=== PATIENT | female | born 2005 | race Caucasian/White ===

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

== ENCOUNTER 2024-02-06 15:17 | Day surgery (SDC) | payer OTHER, SELFPAY ==
[2024-02-06 15:21] VITALS: BP 106/69; PULSE 94; RESP 16; TEMP 36.6; O2SAT 97; BMI 27.5
--- NOTE | 2024-02-06 16:46 | ED_ITS ---
HPI - Abdominal Pain General Time Seen by Provider: 16:46 Date Seen: 02/06/24 Chief Complaint: Abdominal Pain Stated Complaint: Lower abdominal pain Time Seen by Provider: 02/06/24 16:46 Source: patient and RN notes reviewed Mode of arrival: ambulatory Limitations: no limitations History of Present Illness HPI narrative: This 18-year-old female is coming into the ER with severe sharp episodic but significant baseline underlying pain in the pelvic area, radiates into the right buttock area. This started about 20 minutes after intercourse last night. Her menstrual cycles are regular, has not had a menstrual cycle yet. She is not on any control but they do use contraception. She does not believe that she would likely be . She did urinate earlier this morning, no issues with urination until attempting to go into the bathroom right now. She attempted to provide urine for specimen, got she severe sharp pain and could not go. She has had progressive nausea and vomiting, vomited once last night, vomited again just recently. The pain is so bad that it almost makes her feel like she is going to faint. She has never had any sexually transmitted infection, no concern for any vaginal discharge. She had a normal bowel movement yesterday, no diarrhea. She has not had any prior abdominal surgeries, no history of kidney stones. She believes her mom might have kidney stones. No fevers. Related Data Home Medications ?Medication ?Instructions ?Recorded ?Confirmed dextroamphetamine-amphetamine ER 30 mg PO 04/23/22 06/17/22 20 mg 24hr capsule,extend release (Adderall XR) escitalopram oxalate 5 mg tablet 5 mg PO 06/17/22 06/17/22 Previous Rx's ?Medication ?Instructions ?Recorded ondansetron 4 mg disintegrating 4 mg PO Q6H PRN Nausea And 04/23/22 tablet Vomiting #15 tabs sucralfate 1 gram tablet (Carafate) 1 g PO QID 7 days #28 tabs 04/23/22 famotidine 20 mg tablet 20 mg PO DAILY #30 tabs 06/23/22 ibuprofen 600 mg tablet 600 mg PO Q6H PRN Pain #30 tabs 02/07/24 oxycodone 5 mg tablet 5 mg PO Q6H PRN 4 OR GREATER ON 02/07/24 PAIN SCALE #15 tabs Allergies Allergy/AdvReac Type Severity Reaction Status Date / Time No Known Drug Allergies Allergy Verified 02/06/24 15:27 Review of Systems Status of ROS Reports: 6 or more systems reviewed and unremarkable except as noted in History and below [facility] Social History Smoking Status: Current some day smoker What tobacco products do you use: cigarettes Years smoked: 2 Do you use any of these nicotine containing products: E-Cigarettes and Vaping Products Second hand tobacco smoke exposure: No How often do you have a drink containing alcohol: 2-3 times a week How many standard drinks containing alcohol do you have on a typical day: 1 or 2 How often do you have six or more drinks on one occasion: Monthly AUDIT-C Alcohol total score: 5 Non-prescribed substance use: marijuana (any form) Exam Const: Vital Signs, click to edit/add: Vital Signs - 24 hr 02/06/24 15:21 02/06/24 16:53 02/06/24 16:57 Temperature 97.8 F Pulse Rate 66 Pulse Rate [Pulse Oximeter] 94 Respiratory Rate 16 18 Blood Pressure 103/57 L Blood Pressure [Ri ght Upper Arm] 106/69 Pulse Oximetry 97 98 99 Oxygen Delivery Me thod Room Air 02/06/24 19:59 02/06/24 21:45 02/07/24 00:25 Temperature 98.3 F 97.4 F L Pulse Rate 72 58 L Pulse Rate [Pulse Oximeter] 83 Respiratory Rate 18 18 14 Blood Pressure 113/64 107/67 Blood Pressure [Ri ght Upper Arm] 110/80 Pulse Oximetry 100 98 100 Oxygen Delivery Me thod Room Air Room Air 02/07/24 00:30 02/07/24 00:35 02/07/24 00:40 Temperature Pulse Rate 56 L 54 L 55 L Pulse Rate [Pulse Oximeter] Respiratory Rate 14 14 12 Blood Pressure 88/61 L 99/66 104/59 L Blood Pressure [Ri ght Upper Arm] Pulse Oximetry 100 100 99 Oxygen Delivery Me thod Room Air Room Air Room Air 02/07/24 00:45 02/07/24 00:50 02/07/24 00:55 Temperature Pulse Rate 56 L 52 L 56 L Pulse Rate [Pulse Oximeter] Respiratory Rate 14 14 12 Blood Pressure 110/64 108/69 97/73 Blood Pressure [Ri ght Upper Arm] Pulse Oximetry 100 99 100 Oxygen Delivery Me thod Room Air Room Air Room Air This 18-year-old female is alert, interactive, seems to be in significant discomfort. Pupils are equal round reactive, sclera clear, symmetrical facial function, speech normal. Neck supple, no adenopathy. Lungs are clear, good air entry, wheezing or crackles. CV regular rate and rhythm, no murmur, normal S1- S2, no S3-S4. Abdomen is soft, nondistended but she has definite right upper quadrant pain, significant lower abdominal pain with some guarding but no rebound. She is tender enough that is difficult to tell if there is any underlying masses or organomegaly. Pelvic exam deferred at this point. Skin visualized without rash. Patient was ambulatory into the ED of her own accord but does note it ambulating is painful. Documenting provider has reviewed patient's vital signs: yes Course Course ED Course: This certainly could be urinary issues such as a kidney stone, need to try to obtain urinalysis. Will get serum test, need to consider ectopic if test is positive. Patient feels quite sure that there really is not a chance for but will do the test. Will start with IV Toradol and Zofran for symptom control. Will initiate pelvic ultrasound looking at right ovary. This could be ovarian cystic disease, need to consider ovarian torsion with her presentation. Patient will need pain management prior to going to have ultrasound. May need to consider CT imaging. Do not feel that we can wait to collect urinalysis, do think we really should visualize her ovaries make sure there is no torsion. Reevaluation(s) Time of Reevaluation #1: 18:40 Reevaluation #1: Patient is checked on, she feels her pain is better, has received both Toradol and 25 mcg of fentanyl. She is better. On palpation of her abdomen, still has some right lower quadrant tenderness but is certainly much improved over where she was on admission. We are awaiting radiology over read but reviewed with her that the preliminary from director sales training is that there is a ruptured hemorrhagic cyst. Time of Reevaluation #2: 19:02 Reevaluation #2: Provided patient copy of her ultrasound report, reviewed with her that there is not a chance for ruptured ectopic as her hCG is negative. She notes that the lower pelvic cramping that she was having in the lower severe abdominal pain is improved. She is feeling a little upper epigastric discomfort, not nausea. She does not feel like she needs pain medicines. She is still hemodynamically stable. We will proceed with CT abdomen pelvis with IV contrast as requested by Radiology to further look at the abnormal ultrasound report. Time of Reevaluation #3: 20:05 Reevaluation #3: Have updated the patient regarding the findings of the CT. We are getting an updated hemoglobin, will do a type and screen. She is aware that she will likely be going to surgery, ultimate say will be from the surgeon coming in to evaluate her. Have reviewed that Dr. Shearer will be coming in to see her. Consultations Consultation #1: Radiology did call and give me verbal report on patient's CT, there was concern for actively hemorrhaging ruptured hemorrhagic right ovarian cyst. We did update nursing staff immediately after that, need to get updated hemoglobin and type and screen. Did page Dr. Shearer at 7:57 p.m. and she called back immediately. She will be in to evaluate this patient, we will let warehouse distribution associate no and get surgical crew here on standby for likely trip to OR. Time: 19:54 Consultation #2: Dr. Shearer is here, hemoglobin has come back at 12.2, was at 14 on arrival. She will go to the OR for diagnostic laparoscopy. Will initiate IV fluids, her pain is escalated at this time, will give her more fentanyl. Did discuss TXA but this is declined at this time by Dr. Shearer. Time: 20:50 Vital Signs Vital signs: Initial Vital Signs Temperature 97.8 F 02/06/24 15:21 Temperature Source Temporal Artery Scan 02/06/24 15:21 Pulse Rate 94 02/06/24 15:21 Respiratory Rate 16 02/06/24 15:21 Blood Pressure 106/69 02/06/24 15:21 Blood Pressure Mean 81 02/06/24 15:21 Blood Pressure Position Sitting 02/06/24 15:21 Pulse Oximetry 97 02/06/24 15:21 Oxygen Delivery Method Room Air 02/06/24 15:21 Vital Signs Temperature 97.8 F 02/06/24 15:21 Pulse Rate 94 02/06/24 15:21 Respiratory Rate 16 02/06/24 15:21 Blood Pressure 106/69 02/06/24 15:21 Pulse Oximetry 97 02/06/24 15:21 Oxygen Delivery Method Room Air 02/06/24 15:21 Temperature 97.4 F L 02/07/24 00:25 Pulse Rate 56 L 02/07/24 00:55 Respiratory Rate 12 02/07/24 00:55 Blood Pressure 97/73 02/07/24 00:55 Pulse Oximetry 100 02/07/24 00:55 Oxygen Delivery Method Room Air 02/07/24 00:55 Medications Administered Medications: Generic Name Dose Route Start Last Admin Trade Name Freq PRN Reason Stop Dose Admin Oxycodone HCl 5 mg 02/07/24 00:27 02/07/24 01:27 Oxycodone 5 Mg Tablet PO 5 mg Q4H PRN Administration 4 OR GREATER ON PAIN SCALE Discontinued Medications Generic Name Dose Route Start Last Admin Trade Name Freq PRN Reason Stop Dose Admin Bupivacaine HCl 30 ml 02/06/24 23:34 02/06/24 23:34 Bupivacaine 0.25% 30 Ml INJECTION 02/06/24 23:35 10 ml ONCE ONE Administration Cefazolin Sodium 2 gm 02/06/24 21:32 02/06/24 22:22 Cefazolin 2 Gm Inj IVP 02/06/24 21:33 2 gm ONCE ONE Administration Fentanyl 25 mcg 02/06/24 17:53 02/06/24 18:01 Fentanyl 100 Mcg/2 Ml Inj IVP 02/06/24 17:54 25 mcg ONCE ONE Administration Fentanyl 50 mcg 02/06/24 20:52 02/06/24 21:00 Fentanyl 100 Mcg/2 Ml Inj IVP 02/06/24 20:53 50 mcg ONCE ONE Administration Hydromorphone HCl 0.5 mg 02/07/24 00:35 02/07/24 00:35 Hydromorphone 0.5 Mg/0.5 Ml Inj IVP 0.5 mg Q10M PRN Administration Sodium Chloride 1,000 mls @ 1,000 mls/hr 02/06/24 20:50 02/06/24 20:59 0.9 % Sodium Chloride 1000 Ml IV 02/06/24 21:49 1,000 mls/hr .Q1H TYSON Administration Ketorolac Tromethamine 15 mg 02/06/24 16:52 02/06/24 17:02 Ketorolac 15 Mg/Ml Inj IVP 02/06/24 16:53 15 mg ONCE ONE Administration Ondansetron HCl 4 mg 02/06/24 16:52 02/06/24 17:02 Ondansetron 2 Mg/Ml Inj IVP 02/06/24 16:53 4 mg ONCE ONE Administration MDM - Abdominal Pain Lab Data Attestation: I reviewed the patient's lab results. Labs: Lab Results 02/06/24 02/06/24 Range/Units 16:55 20:05 WBC 11.12 H (4.50-11.00) K/uL RBC 4.39 (4.00-5.20) m/uL Hgb 14.0 12.2 (12.0-16.0) gm/dL Hct 42.4 (33.0-51.0) % MCV 97 (80-100) fL MCH 32 (26-34) pg MCHC 33 (32-36) gm/dL RDW Coeff of [place]by 12.6 (11.5-15.5) % Plt Count 340 (140-440) K/uL Neut % (Auto) 74.1 H (42.0-72.0) % Lymph % (Auto) 18.3 L (20-44) % [place] % (Auto) 6.6 (0.0-11.0) % Eos % (Auto) 0.7 (0.0-7.0) % Baso % (Auto) 0.2 (0.0-3.0) % Neut # (Auto) 8.20 H (1.7-7.0) K/uL Lymph # (Auto) 2.00 (0.90-2.90) K/uL [place] # (Auto) 0.70 (0.00-0.90) K/UL Eos # (Auto) 0.10 (0.00-0.50) K/uL Baso # (Auto) 0.00 (0.00-0.30) K/uL Abs Immat Gran (auto) 0.00 (0.00-0.30) K/uL Imm/Tot Granulo (auto) 0.1 % Sodium 136 (135-149) mmol/L Potassium 3.7 (3.6-5.1) mmol/L Chloride 103 (96-114) mmol/L Carbon Dioxide 24 (20-32) mmol/L Anion Gap 9 (7-15) mEq/L BUN 11 (5-24) mg/dL Creatinine 0.7 (0.5-1.5) mg/dL Estimated Creat Clear 110.70 Estimated GFR 127 ml/min Glucose 131 H (60-115) mg/dL Lactate 1.1 (0.5-1.9) mmol/L Calcium 8.8 (8.4-10.6) mg/dL Total Bilirubin 0.3 (0.1-1.5) mg/dL AST 22 (12-35) U/L ALT 19 (4-35) U/L Alkaline Phosphatase 72 (40-150) U/L C-Reactive Protein < 0.5 L (0.5-1.0) mg/dL Total Protein 7.0 (6.0-8.3) g/dL Albumin 4.3 (3.3-5.0) g/dL HCG, Qual Negative (Negative) Blood Type O Positive Antibody Screen NEGATIVE Imaging Data US pelvis: Attestation: I have reviewed the pertinent imaging results. My impression: Did visualize images of the ultrasound, can see this complex process around the right ovarian area. Radiologist's impression: Patient: CHRIS HILTON Facility:?[facility] Patient ID:?[id number] Site Patient ID:?[id number]. Site :?[id number] Study:?US-Pelvis TA/TV w/doppler-02/06/2024 6:01:38 PM Ordering Physician:Ladi Olguin Final Report: INDICATION: Severe pelvic pain. COMPARISON: None. TECHNIQUE: 2D hinton scale and color Doppler images were acquired of the pelvis using a transabdominal and transvaginal approach. FINDINGS: Sonographic images demonstrate a normal size and smooth outer contour of the uterus. The uterus is anteverted in position. The uterus measures 6.1 cm in length by 3.3 cm in AP diameter by 3.7 cm in transverse dimension. The myometrium has uniform echotexture. The endometrial lining measures 8 mm in composite thickness. The right ovary was not discretely visualized. There is a complex solid and cystic structure in the right adnexa measuring 6.1 x 4.9 x 5.6 cm with peripheral blood flow. Adjacent/surrounding large slightly echogenic solid- appearing structure in the right adnexa measuring approximately 5 x 10 cm. The left ovary measures 5.1 x 2.1 x 5.2 cm. Normal arterial and venous blood flow on color Doppler analysis. There is a 3.2 x 2.1 x 2.9 cm hypoechoic structure in the left ovary with no significant internal vascularity. Large amount of complex fluid throughout the pelvis which may represent blood products. IMPRESSION: 1. Complex solid and cystic structure in the right adnexa with large amount of adjacent/surrounding slightly echogenic material. The right ovary was not discretely visualized. Differential considerations include ruptured hemorrhagic cyst, ruptured ectopic , tubo-ovarian abscess, ovarian mass, or other non gynecologic issue. Correlate with serum beta HCG levels. Recommend further evaluation with contrast-enhanced CT of the abdomen and pelvis. 2. Hypoechoic avascular structure in the left ovary could represent a hemorrhagic cyst but is indeterminate. Follow-up ultrasound is recommended to ensure resolution. 3. Large amount of complex fluid throughout the pelvis may represent blood products. Dictated by Beulah William MD @ 02/06/2024 6:58:52 PM (Electronic Signature) CT scan - abdomen: Attestation: I have reviewed the pertinent imaging results. Radiologist's impression: Patient: SLOAN PEREZ Facility:?[facility] Patient ID:?[id number] Site Patient ID:?[id number]. Site :?2003 Study:?CT-Abdomen/Pelvis W/ 79CC [id number]/25/2024 7:35:58 PM Ordering Physician:Ladi Olguin Final Report: INDICATION: Severe pelvic pain. Radiologist recommends CT scan. Technique : Axial intravenously infused CT cuts were performed from above the diaphragm to below the ischial tuberosities. 79 mL of Isovue 370 was injected intravenously. Comparison : Pelvic ultrasound 02/06/2024. FINDINGS: There is a cystic lesion within right side of the pelvis the measures 3.7 x 2.9 cm in the axial plane and 2.5 cm cranio caudally. There is a very large amount of free blood within the pelvis that extends into the paracolic gutters as far superiorly as the liver and spleen. There is likely active arterial bleeding. The findings could be due to either a ruptured ectopic or ruptured hemorrhagic ovarian cyst. The uterus is somewhat displaced to the left. The urinary bladder appears normal. The liver, spleen, pancreas, adrenals and kidneys appear normal. The colon and small bowel appear normal. The appendix is not inflamed. There are no enlarged retroperitoneal, mesenteric, iliac or inguinal lymph nodes. There are no nodules masses the lung bases. There no lytic or sclerotic skeletal lesions. Impression: Cystic lesion within the right side of the pelvis with a very large amount of free intraperitoneal blood. There is likely active arterial bleeding present. These findings are likely either due to a ruptured ectopic or ruptured hemorrhagic ovarian cyst. These results were called to Dr. Moser at 7:56 pm on 02/06/2024. Please note that all CT scans at this facility use dose modulation, iterative reconstruction, and/or weight-based dosing when appropriate to reduce radiation dose to as low as reasonably achievable. Dictated by Audie Garcia MD @ 02/06/2024 7:59:41 PM (Electronic Signature) Discharge Plan Discharge Activity Level: Activity as Tolerated Discharge Diet: Regular
--- NOTE | 2024-02-06 16:52 | CRLHL7_ITS ---
For Patients: As a result of the Century Cures Act, medical imaging exams and procedure reports are released immediately into your electronic medical record. You may view this report before your referring provider. If you have questions, please contact your health care provider. INDICATION: Severe pelvic pain. COMPARISON: None. TECHNIQUE: 2D hinton scale and color Doppler images were acquired of the pelvis using a transabdominal and transvaginal approach. FINDINGS: Sonographic images demonstrate a normal size and smooth outer contour of the uterus. The uterus is anteverted in position. The uterus measures 6.1 cm in length by 3.3 cm in AP diameter by 3.7 cm in transverse dimension. The myometrium has uniform echotexture. The endometrial lining measures 8 mm in composite thickness. The right ovary was not discretely visualized. There is a complex solid and cystic structure in the right adnexa measuring 6.1 x 4.9 x 5.6 cm with peripheral blood flow. Adjacent/surrounding large slightly echogenic solid-appearing structure in the right adnexa measuring approximately 5 x 10 cm. The left ovary measures 5.1 x 2.1 x 5.2 cm. Normal arterial and venous blood flow on color Doppler analysis. There is a 3.2 x 2.1 x 2.9 cm hypoechoic structure in the left ovary with no significant internal vascularity. Large amount of complex fluid throughout the pelvis which may represent blood products. IMPRESSION: 1. Complex solid and cystic structure in the right adnexa with large amount of adjacent/surrounding slightly echogenic material. The right ovary was not discretely visualized. Differential considerations include ruptured hemorrhagic cyst, ruptured ectopic , tubo-ovarian abscess, ovarian mass, or other non gynecologic issue. Correlate with serum beta HCG levels. Recommend further evaluation with contrast-enhanced CT of the abdomen and pelvis. 2. Hypoechoic avascular structure in the left ovary could represent a hemorrhagic cyst but is indeterminate. Follow-up ultrasound is recommended to ensure resolution. 3. Large amount of complex fluid throughout the pelvis may represent blood products. Dictated by Beulah William MD @ 02/06/2024 6:58:52 PM (Electronically Signed)
[2024-02-06 16:53] VITALS: O2SAT 98
[2024-02-06 16:57] VITALS: BP 103/57; PULSE 66; RESP 18; O2SAT 99
[2024-02-06 16:59] LABS: Lactate* 1.1 mmol/L (0.5-1.9)
[2024-02-06] MEDS: ONDANSETRON 2 MG/ML inj 4 MG IVP (17:02)
[2024-02-06] MEDS: KETOROLAC 15 MG/ML inj IVP (17:02)
[2024-02-06 17:03] LABS: Basophils Percent Auto 0.2 % (0.0-3.0); Eosinophils Percent Auto 0.7 % (0.0-7.0); Hematocrit 42.4 % (33.0-51.0); Immature Granulocytes Pct Auto 0.1 %; Lymphocytes Percent Auto 18.3 % (20-44); Mean Corpuscular HGB Conc 33 gm/dL (32-36); Mean Corpuscular Hemoglobin 32 pg (26-34); Mean Corpuscular Volume 97 fL (80-100); Monocytes Percent Auto 6.6 % (0.0-11.0); Neutrophils Percent Auto 74.1 % (42.0-72.0); Platelet Count* 340 K/uL (140-440); RDW Coefficient of Variation % 12.6 % (11.5-15.5); Red Blood Count 4.39 m/uL (4.00-5.20); White Blood Count* 11.12 K/uL (4.50-11.00)
--- OUTSIDE RECORDS SUMMARY | 2024-02-06 17:11 | XMS_ITS | Clinical Summary ---
Author Organization [facility] Address [place], [place] [address] Care Team Providers Care Manager Workers Compensation Name Role Phone Pcp, No Primary Care Provider Unavailabl e Allergies No known active allergies Medications Medication Sig Dispensed Refills Start Date End Date Status dextroamphetamine-am phetamine (Adderall XR) 30 mg Extended-Release capsuleIndications:A ttention deficit hyperactivity disorder (ADHD), predominantly inattentive type Take 1 Capsule (30 mg) by mouth once daily. 30 Capsule 12/14/2023 Active dextroamphetamine-am phetamine (Adderall XR) 30 mg Extended-Release capsuleIndications:A ttention deficit hyperactivity disorder (ADHD), predominantly inattentive type Take 1 Capsule (30 mg) by mouth once daily. 30 Capsule 01/13/2024 02/12/2024 Active dextroamphetamine-am phetamine (Adderall XR) 30 mg Extended-Release capsuleIndications:A ttention deficit hyperactivity disorder (ADHD), predominantly inattentive type Take 1 Capsule (30 mg) by mouth once daily. 30 Capsule 02/13/2024 03/14/2024 Active dextroamphetamine-am phetamine (Adderall XR) 30 mg Extended-Release capsuleIndications:A ttention deficit hyperactivity disorder (ADHD), predominantly inattentive type Take 1 Capsule (30 mg) by mouth once daily. 30 Capsule 03/14/2024 Active mirtazapine (REMERON) 7.5 mg tabletIndications:Sl eep terror Take 1 Tablet (7.5 mg) by mouth at bedtime. 30 Tablet 1 12/18/2023 Active sertraline (ZOLOFT) 50 mg tabletIndications:Cu rrent moderate episode of major depressive disorder without prior episode (HC),Generalized anxiety disorder Take 0.5 Tablets (25 mg) by mouth once daily for 8 days, THEN 1 Tablet (50 mg) once daily for 22 days. 26 Tablet 1 12/18/2023 01/17/2024 Active Problems Problem Noted Date Diagnosed Date Generalized anxiety disorder 03/07/2020 Current moderate episode of major depressive disorder without prior episode 03/07/2020 Attention deficit hyperactiv ity disorder (ADHD), predominantly inattentive type 03/07/2020 Parasomnia, unspecified 01/30/2017 Overview (01/30/2017): Panic/anxiety upon entering into sleep 2x/month Resolved Problems Problem Noted Date Diagnosed Date Resolved Date Nexplanon in place 09/12/2020 Irritation of clitoris 01/30/201701/28 Overview (01/30/2017): Small hair growing from clitoris -- see [facility] 01/30/2017 Encounters Date Type Department Care Team Description 12/18/2023 2:00 PM CDT Office Visit [facility] [address] [place] [address] Yisel Aguilar MD Medication Management (Lexapro, and Adderall) 12/18/2023 Travel from Last 3 Months Immunizations Name Administration Dates Next Due COVID-19 vaccine ([employer]-Bio NTech 30mcg/0.3mL) 12YO+ SHIRIN-SUCROSE PF, MDV 08/02/2021 COVID-19 vaccine (Assmbly-Bio NTech 30mcg/0.3mL) PF, MDV 05/23/2020,05/02/2020 DTaP 03/02/2008,07/29/2006,2003 [id number] (Pediarix) 10/29/2005,01/04/2004,0 2003 HIB HbOC (HibTITER) 01/04/2004 HIB PRP-OMP (PedvaxHIB) 02/28/2005,01/04/2004, Hepatitis A (Peds) 01/30/2017 Hepatitis B (Peds) 2003 Inactivated Polio Vaccine 03/02/2008,2003 Influenza, IIV3 (Age >=3 years) 02/26/2006,03/10,02/24/2004 Influenza, IIV4 01/30/2017 MENINGOCOCCAL VACCINE 2 VIAL 2MO-55YO (MENVEO) 11/03/2015 MMR 03/02/2008,10/29/2005 Pneumococcal Poly,23-Valent (Pneumovax) 02/28/2005 Pneumococcal conj 7-Valent (Prevnar 7) 0 10/29/2005,02/28/2005,01/04/2004,09/29 Tdap 11/03/2015 Varicella Vaccine 03/02/2008,10/29/2005 Family History Medical History Relation Name Comments Good Health Father Diabetes Maternal Grandmother Depression Mother Diabetes Mother on insulin, typ e 2 Relation Name Status Comments Father Maternal Grandmother Mother Social History Tobacco Use Types Packs/Day Years Used Date Smoking Tobacco: Light Smoker Cigarettes Passive Smoke Exposure: Current Smokeless Tobacco: Never Tobacco Cessation:Ready to Q uit: No; Counseling Given: No Alcohol Use Standard Drinks/Week Comments Yes 0 (1 standard drink = 0.6 oz pur e alcohol) Occ PHQ-2 Answer Date Recorded PHQ-2 TOTAL SCORE 2 12/18/2023 Social Connections Answer Date Recorded Frequency of Communication with Friends and Fami ly 4 01/14/2023 Alcohol Use Answer Date Recorded How often do you have a drink containing alcohol ? 3 01/14/2023 How many drinks containing a lcohol do you have on a typical day when you are drinking? 1 01/14/2023 How often do you have five or more drinks on one occasion? 2 01/14/2023 Financial Resource Strain Answer Date R ecorded Difficulty of Paying Living Expenses 1 01/14/2023 Difficulty of Paying Living Expenses 2 01/14/2023 Food Insecurity Answer Date Recorded Worried About Running Out of Food in the Last Ye ar 1 01/14/2023 Transportation Needs Answer Date Record ed Lack of Transportation (Medical) 1 01/14/2023 Housing Stability Answer Date Recorded Unable to Pay for Housing in the Last Year 1 01/14/2023 Sex and Gender Information Value Date Recorded Sex Assigned at Female 02/26/2021 12:39 PM GHOST WRITER Gender Identity Female 02/26/2021 12:39 PM GHOST WRITER Sexual Orientation Straight 02/26/2021 12 :39 PM GHOST WRITER Obstetrics History Para Term AB IAB SAB Ectopic Multiple Livin g Live Births 0 0 0 0 0 0 0 0 0 0 0 Last Filed Vital Signs Vital Sign Reading Time Taken Comments Blood Pressure 110/74 12/18/2023 1:59 PM CDT Pulse 74 12/18/2023 1:59 PM CDT Temperature 37.2 ??C (99 ??F) 06/02/2020 3:53 PM GHOST WRITER Respiratory Rate - - Oxygen Saturation 99% 12/18/2023 1:59 PM CDT Inhaled Oxygen Concentration - - Weight 76.5 kg (168 lb 11.2 oz) 12/18/2023 1:59 PM CDT Height 165 cm (5' 4.96) 12/18/2023 1:59 PM CDT Body Mass Index 28.11 12/18/2023 1:59 PM CDT Plan of Treatment Health Maintenance Due Date Last Done Comments Pneumococcal series for age 6-64 (1 of 2 - PCV) 07/13/2009 10/29/2005, 02/28/2005, 02/28/2005, Additional history exists HIV for age 15-65 07/13/2018 HPV series for age 9-26 (1 - 3-dose series) 07/13/2018 Hepatitis C screening for age 18-79 07/13/2021 COVID-19 vaccine series ( season) 2023 08/02/2021, 05/23/2020, 05/02/2020 Influenza for age 9-49 12/14/2023 7, 02/26/2006, 03/10/2005, Additional history exists Chlamydia for age 16-24 01/15/2024 01/15/20 23, 01/23/2021, 02/03/2020 Well Child Check for age 3-20 01/15/2024 01/14/2023, 01/30/2017, 11/03/2015, Additional history exists BMI (ht and wt on same day) for age 18+ 12/17/2024 12/18/2023, 08/25/2023, 05/20/2023, Additional history exists Depression screening for age 12+ 12/17/2024 12/18/2023, 08/25/2023, 05/20/2023, Additional history exists Tetanus booster 11/02/2025 11/03/2015 Meningococcal series for age 11-21 Aged Out 11/03/2015 No longer eligible based on patient's age to complete this topic Tdap Completed 11/03/2015 Procedures Procedure Name Priority Date/Time Associated Diagnosis Comments GC CHLAMYDIA TRACH PROBE Routine 01/14/2023 3:14 PM CDT Routine screening for STI (sexually transmitted infection) from Last 3 Months or Most Recently Relevant to Health Maintenance Results * GC CHLAMYDIA TRACH PROBE (01/14/2023 3:14 PM CDT) CHLAMYDIA PROBE Negative 4:58 PM CDT [facility] N GONORRHOEAE PROBE Negative 01/15/2023 4:58 PM CDT [facility] Other URINE SPECIMEN / Unknown Non-Blood / Unknown 01/14/2023 3:14 PM CDT 01/14/2023 3:19 PM CDT Yisel Aguilar MD MICROBIOLOG Y [facility] [address] [place] [address], from Last 3 Months or Most Recently Relevant to Health Maintenance Care Teams Manager Workers Compensation Relationship Specialty Start Date End Date Pcp, No . PCP - General 07/15/14
[2024-02-06 17:13] LABS: Slide Review Reflex No
[2024-02-06 17:15] LABS: Albumin* 4.3 g/dL (3.3-5.0); Chloride* 103 mmol/L (96-114)
[2024-02-06 17:16] LABS: Potassium* 3.7 mmol/L (3.6-5.1); Sodium* 136 mmol/L (135-149)
[2024-02-06 17:18] LABS: Anion Gap 9 mEq/L (7-15); Aspartate Amino Transferase* 22 U/L (12-35); Bilirubin Total* 0.3 mg/dL (0.1-1.5); Carbon Dioxide* 24 mmol/L (20-32); Creatinine* 0.7 mg/dL (0.5-1.5); Estimated Glomerular Filt Rate 127 ml/min
[2024-02-06 17:19] LABS: Alanine Aminotransferase* 19 U/L (4-35); Alkaline Phosphatase* 72 U/L (40-150); Blood Urea Nitrogen* 11 mg/dL (5-24); Calcium* 8.8 mg/dL (8.4-10.6); Glucose* 131 mg/dL (60-115)
[2024-02-06 17:33] LABS: HCG Qualitative Serum* Negative (Negative)
[2024-02-06 17:34] LABS: C Reactive Protein* < 0.5 mg/dL (0.5-1.0)
[2024-02-06] MEDS: fentaNYL 100 MCG/2 ML inj 25 MCG IVP (18:01)
--- NOTE | 2024-02-06 19:02 | CRLHL7_ITS ---
For Patients: As a result of the Century Cures Act, medical imaging exams and procedure reports are released immediately into your electronic medical record. You may view this report before your referring provider. If you have questions, please contact your health care provider. INDICATION: Severe pelvic pain. Radiologist recommends CT scan. Technique : Axial intravenously infused CT cuts were performed from above the diaphragm to below the ischial tuberosities. 79 mL of Isovue 370 was injected intravenously. Comparison : Pelvic ultrasound 02/06/2024. FINDINGS: There is a cystic lesion within right side of the pelvis the measures 3.7 x 2.9 cm in the axial plane and 2.5 cm cranio caudally. There is a very large amount of free blood within the pelvis that extends into the paracolic gutters as far superiorly as the liver and spleen. There is likely active arterial bleeding. The findings could be due to either a ruptured ectopic or ruptured hemorrhagic ovarian cyst. The uterus is somewhat displaced to the left. The urinary bladder appears normal. The liver, spleen, pancreas, adrenals and kidneys appear normal. The colon and small bowel appear normal. The appendix is not inflamed. There are no enlarged retroperitoneal, mesenteric, iliac or inguinal lymph nodes. There are no nodules masses the lung bases. There no lytic or sclerotic skeletal lesions. Impression: Cystic lesion within the right side of the pelvis with a very large amount of free intraperitoneal blood. There is likely active arterial bleeding present. These findings are likely either due to a ruptured ectopic or ruptured hemorrhagic ovarian cyst. These results were called to Dr. Moser at 7:56 pm on 02/06/2024. Please note that all CT scans at this facility use dose modulation, iterative reconstruction, and/or weight-based dosing when appropriate to reduce radiation dose to as low as reasonably achievable. Dictated by Audie Garcia MD @ 02/06/2024 7:59:41 PM (Electronically Signed)
[2024-02-06 19:59] VITALS: BP 113/64; PULSE 72; RESP 18; O2SAT 100
[2024-02-06 20:31] LABS: Hemoglobin* 12.2 gm/dL (12.0-16.0)
[2024-02-06] MEDS: 0.9 % SODIUM CHLORIDE 1000 ml 1,000 ML IV (20:59)
[2024-02-06] MEDS: fentaNYL 100 MCG/2 ML inj 50 MCG IVP (21:00)
--- NOTE | 2024-02-06 21:07 | PM.GYNCN1 ---
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 The pain began suddenly last night about 20 minutes after sexual intercourse with her boyfriend. The pain is located across her entire low abdomen, and is now spreading to involve the upper stomach as well. She experiences periodic worsening waves of pain that make her feel lightheaded and/or nauseous. She has vomited from the pain prior to her arrival here. She denies fever, chills, dysuria, constipation or diarrhea. Not using contraception. Reports regular menses. Had a negative UPT. No history of sexually transmitted infections or PID. Past Medical History: ADHD Surgical History: negative Pertinent labs: Hgb 14.0 @ 1655, 12.2 @ 2005. Imaging studies: Pelvic ultrasound: 1. Complex solid and cystic structure in the right adnexa with large amount of adjacent/surrounding slightly echogenic material. The right ovary was not discretely visualized. Differential considerations include ruptured hemorrhagic cyst, ruptured ectopic , tubo-ovarian abscess, ovarian mass, or other non gynecologic issue. Correlate with serum beta HCG levels. Recommend further evaluation with contrast-enhanced CT of the abdomen and pelvis. 2. Hypoechoic avascular structure in the left ovary could represent a hemorrhagic cyst but is indeterminate. Follow-up ultrasound is recommended to ensure resolution. 3. Large amount of complex fluid throughout the pelvis may represent blood products. CT Abdomen/pelvis: Cystic lesion within the right side of the pelvis with a very large amount of free intraperitoneal blood. There is likely active arterial bleeding present. These findings are likely either due to a ruptured ectopic or ruptured hemorrhagic ovarian cyst. cc:: CC: Review of Systems Status of ROS: Reports: 10 or more systems reviewed and unremarkable except as noted in History and below PFSH PFSH Social History Smoking Status: Current some day smoker What tobacco products do you use: cigarettes Years smoked: 2 Do you use any of these nicotine containing products: E-Cigarettes and Vaping Products Second hand tobacco smoke exposure: No How often do you have a drink containing alcohol: 2-3 times a week How many standard drinks containing alcohol do you have on a typical day: 1 or 2 How often do you have six or more drinks on one occasion: Monthly AUDIT-C Alcohol total score: 5 Non-prescribed substance use: marijuana (any form) Meds Home Medications and Allergies Home Medications ?Medication ?Instructions ?Recorded ?Confirmed ?Type dextroamphetamine-amphetamine ER 30 mg PO 04/23/22 06/17/22 History 20 mg 24hr capsule,extend release (Adderall XR) escitalopram oxalate 5 mg tablet 5 mg PO 06/17/22 06/17/22 History Allergies Allergy/AdvReac Type Severity Reaction Status Date / Time No Known Drug Allergies Allergy Verified 02/06/24 15:27 SUPERVISOR MECH[employer]ILERMAKING - Exam Physical Exam: Vital signs: Temp Pulse Resp BP Pulse Ox O2 Del Method 97.8 F 72 18 113/64 100 Room Air 02/06/24 15:21 02/06/24 19:59 02/06/24 19:59 02/06/24 19:59 02/06/24 19:59 02/06/24 15:21 Constitutional: Constitutional: no acute distress (anxious, wincing on occasion due to anxiety and discomfort) and cooperative Routine Respiratory Exam: Comments: Normal respiratory effort Detailed Abdominal Exam: Comments: Soft, tender diffusely, nondistended, no rebound SUPER[employer]ILERMAKING - Results Labs Labs: Short CBC 02/06/24 02/06/24 Range/Units 16:55 20:05 WBC 11.12 H (4.50-11.00) K/uL Hgb 14.0 12.2 (12.0-16.0) gm/dL Hct 42.4 (33.0-51.0) % Plt Count 340 (140-440) K/uL BMP 02/06/24 16:55 Sodium 136 Potassium 3.7 Chloride 103 Carbon Dioxide 24 BUN 11 Creatinine 0.7 Glucose 131 H Calcium 8.8 Liver Function 02/06/24 Range/Units 16:55 Total Bilirubin 0.3 (0.1-1.5) mg/dL AST 22 (12-35) U/L ALT 19 (4-35) U/L Alkaline Phosphatase 72 (40-150) U/L Albumin 4.3 (3.3-5.0) g/dL Assessment and Plan Assessment and plan (1) Ruptured ovarian cyst: Status: Acute (2) Hemoperitoneum: Status: Acute Plan As there is evidence of ongoing active intra-abdominal bleeding, as evidenced by the significant drop in Hgb and the Radiologist's finding of likely arterial bleeding on imaging, I would recommend proceeding with surgical exploration to find and treat the source of the bleeding, which seems likely to be a ruptured right ovarian cyst. We discussed the relative risks and benefits of diagnostic laparoscopy with evacuation of hemoperitoneum, possible right ovarian cystectomy and possible laparotomy. She is currently hemodynamically stable, so the likelihood of needing a life-saving blood transfusion is low. The procedure would be done under general anesthesia. She is already NPO. I would recommend Med Surg observation following surgery until morning. Informed consent for the procedure was obtained. Total Time Spent Total Time Spent: 45 minutes
[2024-02-06 21:45] VITALS: BP 110/80; PULSE 83; RESP 18; TEMP 36.8; O2SAT 98
--- OUTSIDE RECORDS SUMMARY | 2024-02-06 22:17 | XMS_ITS | Clinical Summary ---
Author Organization [facility] Address [place], [place] [address] Care Team Providers Care Kiln Fireman Name Role Phone Pcp, No Primary Care [...] Small hair growing from clitoris -- see [facility] 01/30/2017 Encounters Date Type Department Care Team Description 12/18/2023 2:00 PM CDT Office Visit [facility] [address] [place] [address] Yisel Aguilar MD Medication Management (Lexapro, and Adderall) 12/18/2023 Travel from Last 3 Months Immunizations Name Administration Dates Next Due COVID-19 vaccine ([employer]-Bio NTech 30mcg/0.3mL) 12YO+ SHIRIN-SUCROSE PF, MDV 08/02/2021 COVID-19 vaccine ([employer]-Bio NTech 30mcg/0.3mL) PF, MDV 05/23/2020,05/02/2020 DTaP 03/02/2008,07/29/2006,2003 [id number] (Pediarix) 10/29/2005,01/04/2004,0 2003 HIB HbOC (HibTITER) 01/04/2004 [...] Sex Assigned at Female 02/26/2021 12:39 PM GUTTER INSTALLER Gender Identity Female 02/26/2021 12:39 PM GUTTER INSTALLER Sexual Orientation Straight 02/26/2021 12 :39 PM GUTTER INSTALLER Obstetrics History Para Term AB IAB SAB Ectopic Multiple Livin g Live Births 0 0 0 0 0 0 0 0 0 0 0 Last Filed Vital Signs Vital Sign Reading Time Taken Comments Blood Pressure 110/74 12/18/2023 1:59 PM CDT Pulse 74 12/18/2023 1:59 PM CDT Temperature 37.2 ??C (99 ??F) 06/02/2020 3:53 PM GUTTER INSTALLER Respiratory Rate - - Oxygen Saturation 99% [...] CDT) CHLAMYDIA PROBE Negative 4:58 PM CDT [facility] N GONORRHOEAE PROBE Negative 01/15/2023 4:58 PM CDT [facility] Other URINE SPECIMEN / Unknown Non-Blood / Unknown 01/14/2023 3:14 PM CDT 01/14/2023 3:19 PM CDT Yisel Aguilar MD [facility]CROBIOLOG Y [facility] [address] [place] [address], from Last 3 Months or Most Recently Relevant to Health Maintenance Care Teams Kiln Fireman Relationship Specialty Start Date End Date Pcp, No . PCP - General 07/15/14
[2024-02-06] MEDS: CEFAZOLIN 2 GM INJ IVP (22:22)
[2024-02-06] MEDS: BUPIVACAINE 0.25% 30 ML INJECTION (23:34)
--- NOTE | 2024-02-06 23:39 | SUR.OPER ---
Verbal consent obtained from patient to use MotherPennie, karma for electronic photos. Mothers email provided:
[2024-02-07] VITALS (17 sets, daily range): BP systolic 88–121; BP diastolic 56–84; PULSE 52–102; RESP 12–18; TEMP 36.1–36.7; O2SAT 99–100
--- NOTE | 2024-02-07 00:30 | P.GYNPRC_ITS ---
Procedure Note Date of procedure: 02/06/24 Will [facility] bill your pro fee for this procedure?: Yes Pre-op diagnosis: 1. Ruptured hemorrhagic ovarian cyst with active bleeding. 2. Hemoperitoneum. Post-op diagnosis: Same. Procedure: 1. Laparoscopy. 2. Evacuation of hemoperitoneum. 3. Right ovarian cystectomy. Anesthesia: GETA Complications: None. Surgeon: Yaquelin Shearer MD Estimated blood loss (mL): 390 IV fluids (mL): 600 Urine Output (mL): 400 Pathology: specimen obtained, sent to pathology (Right ovarian cyst wall) Condition: stable Disposition: observation Findings: Large amount of blood and clots in the abdomen and pelvis, 390 mL measured. Right ovary containing simple cyst with adjacent ruptured hemorrhagic cyst, with active bleeding coming from the rupture site. Normal appearing uterus, left ovary, bilateral fallopian tubes, appendix, liver, and gallbladder. Procedure Description: After obtaining informed consent, the patient was taken to the operating room where general anesthesia was obtained without difficulty. She was prepared and draped in the normal sterile fashion in the low dorsal lithotomy position. A King catheter was inserted into the bladder and left to gravity drainage. A medium Graves open-sided speculum was introduced into the vagina. The cervix was visualized and grasped along its anterior lip with a single-toothed tenaculum. I was unable to sound the uterus due to narrow cervical canal, even with use of small dilators and an os finder. Therefore, a uterine manipulator was not placed. The tenaculum was left in place, the speculum was removed, and a sponge stick was placed into the vagina. I then changed gloves and my attention was turned to the abdomen. The inferior aspect of the umbilical fold was injected with 0.25% Marcaine plain. A 5 mm vertical incision was then made within the umbilical fold using a scalpel. The subcutaneous tissues were bluntly dissected with a Elma clamp to the fascia. A direct entry technique was used to place a 5 mm laparoscopic port with CO2 gas set to a 5 mmHg. The initial attempt was unsuccessful, and repeated, again without success. The incision was extended to 11 mm, the fascial incision was grasped with two Nova clamps and extended to 11 mm, and using S retractors, the underlying peritoneum was identified, and entered bluntly with a finger. An 11 mm trocar was then advanced through the fascia and peritoneal incision under direct visualization and the balloon inflated to hold it in place. The trocar was removed leaving the sleeve in place. The CO2 gas flow was turned to high flow to achieve pneumoperitoneum. The 5 mm laparoscope was used then to carefully inspect the abdomen and pelvis with findings noted above. Pictures were taken for documentation purposes. Because the 5 mm laparoscope provided mar boptimal visualization, it was removed and a 10 mm laparoscoped placed through the port instead. The patient was placed in Trendelenburg positioning. Three additional ports were placed under direct visualization after first anesthetizing the skin and fascia with 0.25% Marcaine plain. In the right lower quadrant, an 11 mm port was placed. 5 mm ports were placed in the left lower quadrant and suprapubically in the midline. The uterus was elevated using the a blunt-tipped graspers. The bowels were gently pushed from the pelvis cephalad. Blood and clots were removed from the pelvis using a suction nursing staffing coordinator. Once majority of the blood clots were removed, the abdomen and pelvis were inspected with the findings noted above. Attention was turned to the right ovary. The ovarian stroma was grasped with a graspers at the site of the cyst rupture. The 5 mm LigaSure device was then inserted through the defect in used to open the ovarian stroma an additional 2 cm over the visualized adjacent simple cyst. The cyst wall was dissected from the ovary using two graspers. The cyst wall came out in multiple pieces. The base of the dissection was than irrigated and areas of bleeding were controlled with bipolar electrocautery using the LigaSure device. Hemostasis was visualized. The patient was then placed in reverse Trendelenburg positioning. Additional blood that had collected around the liver and upper abdomen was then removed with the suction nursing staffing coordinator. Additional blood and clots were then removed from the pelvis. The patient was again placed in Trendelenburg positioning. The pelvis was copiously irrigated and the ovary found to be hemostatic. The ovary was then wrapped in Interceed. The right lower quadrant port was then removed under direct visualization. The Rancho-Romina device was used to reapproximate the fascia at the right lower quadrant port site with an interrupted suture of 0 Vicryl. All instruments were then removed under direct visualization. Pneumoperitoneum was allowed to escape. The fascia at the umbilicus was reapproximated in a pursestring fashion with 0 Vicryl. The skin at all 4 port sites was closed in a subcuticular fashion with 4-0 Vicryl. Surgical glue was then placed over the incisions. The tenaculum, sponge stick and King catheter were removed. The patient tolerated the procedure well. Sponge, lap, and needle counts were correct x2. The patient was taken to the recovery room awake and in stable condition.
[2024-02-07] MEDS: HYDROmorphone 0.5 mg/0.5 ml inj IVP (00:35)
--- NOTE | 2024-02-07 00:36 | P.ANES_ITS ---
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
[2024-02-07] MEDS: OXYCODONE 5 MG TABLET PO ×3 (01:27→09:28)
--- NOTE | 2024-02-07 01:54 | PC.NURSE ---
New telephone orders from Dr Shearer: Give Vistaril 50mg PO once, Morphine 2mg IVP every 2hrs PRN for pain.
--- NOTE | 2024-02-07 08:15 | PC.NURSE ---
Shift note ([id number]): Patient arrived from PACU at 0103. C/O shaking upon arrival, but denied being cold. New telephone orders from Surgeon rec?d. Shaking subsided without need for PRN medication intervention. Given PRN Oxycodone for pain in abdomen rated 4-7/10. Tolerating regular diet and fluids.?Has not urinated yet since arriving to Med/Surg.
[2024-02-07 10:03] LABS: Ur HCG Qualitative* Negative (Negative)
[2024-02-07 10:05] LABS: Appearance Urine Clear (Clear); Bilirubin Urine Negative (Negative); Blood Urine 1+ (Negative); Color Urine Yellow (Yellow); Glucose Urine 1+ (Negative); Ketones Urine Trace (Negative); Leukocyte Esterase Urine Negative (Negative); Nitrite Urine Negative (Negative); Protein Urine Trace (Negative); Specific Gravity Urine >= 1.030 (1.000-1.030); Urobilinogen Urine 0.2 (0.2-1.0)
[2024-02-07 10:16] LABS: Bacteria Urine Few; Mucus Urine Few; Squamous Epithelial Cell Urine Few (None-Few); WBC Urine 0-2 (0-5)
--- NOTE | 2024-02-07 11:34 | PM.GYNDS1 ---
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 Intraoperative findings were notable for: Large amount of blood and clots in the abdomen and pelvis, 390 mL measured. Right ovary containing simple cyst with adjacent ruptured hemorrhagic cyst, with active bleeding coming from the rupture site. Normal appearing uterus, left ovary, bilateral fallopian tubes, appendix, liver, and gallbladder. She had an uncomplicated surgery. Postoperative course has been uneventful. Vitals have been stable. She has remained afebrile. Today, she reports the pain is well controlled. She has been able to ambulate without difficulty. She is tolerating regular diet. She is passing flatus. King catheter has been removed, and she is voiding without difficulty. We reviewed postop destructions. ACTIVITY No heavy lifting/pushing/pulling for 2 weeks. Do not lift anything more than about 20 lbs (such as laundry, groceries, children, pets), vacuum, push heavy doors or grocery carts, etc. You may climb stairs as tolerated. Do not put anything in the vagina for 2 weeks after surgery unless otherwise instructed by your doctor (including tampons, douching, sexual intercourse, etc). No driving for about 1 weeks after surgery, while you are taking narcotic pain medication, or until you feel that you are ready. Practice checking your blind spot and stepping hard on the brake. Avoid sitting or lying in bed for more than 2 hours at a time while you are awake to reduce your risk of blood clots. You may return to work when directed by your physician. Please contact your doctor if you need any return to work letters or medical leave paperwork to be completed. WOUND CARE You will have 4 small incisions on your abdomen. There will be dissolvable stitches under your skin that do not need to be removed. Shower daily after surgery. Clean your incision with mild antibacterial soap and water. Pat your incision dry with a clean towel. No tub baths until wound is completely healed. Wash your hands frequently, especially before touching your incision, changing any dressings, after using the restroom, and before eating. WHAT TO EXPECT AT HOME Recovery from surgery is generally 2-4 weeks, but sometimes longer for more strenuous activity. It is normal to be very tired during this time. You will most likely experience gas pain, abdominal swelling, or shoulder pain for 24-72 hours after surgery. This is from the carbon dioxide gas put into your abdomen to better visualize your organs. A warm shower, heating pad, and/or walking may help. WHEN TO CALL YOUR DOCTOR : Fever (>100.4?F or 38.0?C) or chills. Incision problems such as redness, warmth, swelling, or foul-smelling drainage. Severe nausea or persistent vomiting. Severe pain not relieved with pain medication. Pain and swelling in your legs, especially if it is only on one side and not the other. Pain with urination, cloudy urine, or foul-smelling urine. Or if you have any other problems or questions. CALL 911 OR GO TO THE EMERGENCY ROOM IF YOU HAVE: Any shortness of breath, difficulty breathing, or chest pain. 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 Physical Exam: Vital signs: Temp Pulse Resp BP Pulse Ox O2 Del Method 98.0 F 68 18 112/58 L 99 Room Air 02/07/24 07:24 02/07/24 07:24 02/07/24 07:24 02/07/24 07:24 02/07/24 07:24 02/07/24 07:24 P[employer]ER O[employer] - DS: Data Data Completed and Pending Labs on day of discharge: Labs from last 24 hours 02/07/24 02/06/24 02/06/24 09:30 20:05 16:55 WBC 11.12 H RBC 4.39 Hgb 12.2 14.0 Hct 42.4 MCV 97 MCH 32 MCHC 33 RDW Coeff of Kelby 12.6 Plt Count 340 Neut % (Auto) 74.1 H Lymph % (Auto) 18.3 L [place] % (Auto) 6.6 Eos % (Auto) 0.7 Baso % (Auto) 0.2 Neut # (Auto) 8.20 H Lymph # (Auto) 2.00 [place] # (Auto) 0.70 Eos # (Auto) 0.10 Baso # (Auto) 0.00 Abs Immat Gran (auto) 0.00 Imm/Tot Granulo (auto) 0.1 Sodium 136 Potassium 3.7 Chloride 103 Carbon Dioxide 24 Anion Gap 9 BUN 11 Creatinine 0.7 Estimated Creat Clear 110.70 Estimated GFR 127 Glucose 131 H Lactate 1.1 Calcium 8.8 Total Bilirubin 0.3 AST 22 ALT 19 Alkaline Phosphatase 72 C-Reactive Protein < 0.5 L Total Protein 7.0 Albumin 4.3 HCG, Qual Negative Urine Color Yellow Urine Appearance Clear Urine pH 6.0 Ur Specific Truman >= 1.030 Urine Protein Trace A Urine Glucose (UA) 1+ A Urine Ketones Trace A Urine Blood 1+ A Urine Nitrite Negative Urine Bilirubin Negative Urine Urobilinogen 0.2 Ur Leukocyte Esterase Negative Urine RBC 2-5 A Urine WBC 0-2 Urine WBC Clumps None Ur Squamous Epith Cells Few Urine Bacteria Few A Urine Mucus Few A Urine HCG, Qual Negative Blood Type O Positive Antibody Screen NEGATIVE Procedures Procedures: Procedures Operation Date: 02/06/24 21:30 Actual Procedure Side Surgeon p Diagnostic Laparoscopy, left ovarian cystectomy, evacuation of hemoperitoneal Yaquelin Amanda Shearer MD Discharge Plan Discharge Disposition: Home w/ Parent or Adult Discharging Surgeon: Keisha Smith Follow-Up Appointment: 2 weeks in [facility] with Dr. Shearer Prescriptions: New ibuprofen 600 mg Tablet 600 mg PO Q6H PRN (Reason: Pain) Qty: 30 0RF oxycodone 5 mg Tablet 5 mg PO Q6H PRN (Reason: 4 OR GREATER ON PAIN SCALE) Qty: 15 0RF Continued escitalopram oxalate 5 mg tablet 5 mg PO famotidine 20 mg tablet 20 mg PO DAILY Qty: 30 1RF ondansetron 4 mg tablet,disintegrating 4 mg PO Q6H PRN (Reason: Nausea And Vomiting) Qty: 15 0RF sucralfate [Carafate] 1 gram tablet 1 g PO QID 7 Days Qty: 28 0RF No Action dextroamphetamine-amphetamine 30 mg capsule,extended release 24hr 1 cap PO DAILY sertraline 50 mg tablet PO Activity Level: Activity as Tolerated Discharge Diet: Regular Additional Instructions: No lifting greater than 20 pounds for 2 weeks. Nothing per vagina for 2 weeks. Off work or school for 1-2 weeks, return as tolerated. No driving for one week. Forms: Work/School Release Follow-up: Yisel Aguilar MD [Primary Care Provider] - Discharge Orders: Discharge Order (Routine); Ordered 02/07/24 Ordered By: Keisha Smith
--- NOTE | 2024-02-07 12:35 | PC.NURSE ---
Discharge: Patient pleasant and cooperative, A&O. VSS, afebrile. Patient reports pain on her abdomen this shift, managed with PRN medication, see MAR. Tolerating regular diet. IV removed with tip intact. Discharge information provided, all questions answered. Discharged to home with mother.
== END 2024-02-07 12:02 | disposition home or self-care (01) ==
LOC: ED 21:09 → OR 22:16 → MEDSURG 02-07 01:35
PROVIDERS: Emergency Provider Family Medicine; PCP Pediatrics; Visit Provider Obstetrics & Gynecology
PROC: (CPT 49320; principal; 2024-02-06 21:15)
DX: N83.291 Other ovarian cyst, right side (principal); K66.1 Hemoperitoneum; R10.2 Pelvic and perineal pain; F90.9 Attention-deficit hyperactivity disorder, unspecified type
CPT/HCPCS: 58662; 49322; 00840; 36415; 74177; 76830; 76856; 80053; 81001; 81025; 83605; 84703; 85018; 85025; 86140; 86850; 86900; 86901; 87086; 88305; 93976; 94761; 99140; 99284; 99285; A9270; J0330; J0665; J0690; J1100; J1171; J1630; J1885; J2250; J2405; J2704; J2710; J3010; J3475; J3490; J7030; Q9967

== ENCOUNTER 2024-12-17 17:30 | Emergency (ER) | payer BC, SELFPAY ==
--- OUTSIDE RECORDS SUMMARY | 2024-12-17 17:32 | XMS_ITS | Clinical Summary ---
Author Organization [email or web address] Address [address] [place] [id number] Care Team Providers Care Chin Strap Maker Name Role Phone Pcp, No Primary Care Provider Unavailabl e Allergies No known active allergies Medications dextroamphetamine -amphetamine (Adderall XR) 30 mg Extended-Release capsuleIndication s:Attention deficit hyperactivity disorder (ADHD), predominantly inattentive type Take 1 Capsule (30 mg) by mouth once daily. 30 Capsule 5 01/11/20 25 Active dextroamphetamine -amphetamine (Adderall XR) 30 mg Extended-Release capsuleIndication s:Attention deficit hyperactivity disorder (ADHD), predominantly inattentive type Take 1 Capsule (30 mg) by mouth once daily. 30 Capsule 5 Active sertraline (ZOLOFT) 50 mg tabletIndications :Current moderate episode of major depressive disorder without prior episode (HC),Generalized anxiety disorder Take 1 Tablet (50 mg) by mouth once daily. 30 Tablet 1 5 Active dextroamphetamine -amphetamine (Adderall XR) 30 mg Extended-Release capsuleIndication s:Attention deficit hyperactivity disorder (ADHD), predominantly inattentive type Take 1 Capsule (30 mg) by mouth once daily. 30 Capsule 5 12/17/19 25 Discontinu ed(Duplica te therapy (E-cancel not sent)) dextroamphetamine -amphetamine (Adderall XR) 30 mg Extended-Release capsuleIndication s:Attention deficit hyperactivity disorder (ADHD), predominantly inattentive type Take 1 Capsule (30 mg) by mouth once daily. 30 Capsule 5 12/12/19 25 sertraline (ZOLOFT) 50 mg tabletIndications :Current moderate episode of major depressive disorder without prior episode (HC),Generalized anxiety disorder Take 0.5 Tablets (25 mg) by mouth once daily for 7 days, THEN 1 Tablet (50 mg) once daily for 21 days. 30 Tablet 1 5 12/10/19 25 sertraline (ZOLOFT) 25 mg tablet Take 1 Tablet (25 mg) by mouth once daily, THEN 2 Tablets (50 mg) once daily. 5 12/17/19 25 Discontinu ed(*Medica tion adjustment ) Active Problems Problem Noted Date Diagnosed Date Generalized anxiety disorder 03/07/2020 Current moderate episode of major depressive disorder without prior episode 03/07/2020 Attention deficit hyperactiv ity disorder (ADHD), predominantly inattentive type 03/07/2020 Parasomnia, unspecified 01/30/2017 Overview (01/30/2017): Panic/anxiety upon entering into sleep 2x/month Resolved Problems Problem Noted Date Diagnosed Date Resolved Date Ruptured ovarian cyst 02/06/[address] 09/12/2020 3 Irritation of clitoris 01/30/201701/28 Overview (01/30/2017): Small hair growing from clitoris -- see [facility] 01/30/2017 Encounters Date Type Department Care Team Description 12/16/2024 2:25 PM CDT Office Visit [facility] [address] [facility] [place] [address] Yisel Aguilar MD Medication Management (Sertraline ) 12/16/2024 Travel 11/11/2024 2:50 PM CDT Office Visit [facility] [address] [place] [address] Yisel Aguilar MD Physical (19 year old); Medication Management (Adderall) 11/11/2024 Travel from Last 3 Months Immunizations Immunization Administration Dates Next Due COVID-19 vaccine (Pfizer-Bio NTech 30mcg/0.3mL) 12YO+ SHIRIN-SUCROSE PF, MDV 08/02/2021 COVID-19 vaccine ([employer] NTech 30mcg/0.3mL) PF, MDV 05/23/2020,05/02/2020 DTaP 03/02/2008,07/29/2006,2003 [id number] (Pediarix) 10/29/2005,01/04/2004,0 2003 HIB HbOC (HibTITER) 01/04/2004 [...] PHQ-2 Answer Date Recorded PHQ-2 TOTAL SCORE 4 12/16/2024 Social Connections Answer Date Recorded Do you often feel lonely or isolated from those around you? 4 11/11/2024 Alcohol Use Answer Date Recorded How often do you have a drink containing alcohol ? 3 01/14/2023 How many drinks containing a lcohol do you have on a typical day when you are drinking? 1 01/14/2023 How often do you have five or more drinks on one occasion? 2 01/14/2023 Financial Resource Strain Answer Date R ecorded Difficulty of Paying Living Expenses Not on file 11/11/2024 Difficulty of Paying Living Expenses 3 11/11/2024 Food Insecurity Answer Date Recorded Do you worry your food will run out before you are able to buy more? 2 11/11/2024 Transportation Needs Answer Date Record ed Does lack of transportation keep you from medica l appointments? 1 11/11/2024 Does lack of transportation keep you from work, meetings or getting things that you need? 1 11/11/2024 Housing Stability Answer Date Recorded What is your housing situation today? 2 11/11/2024 Utilities Answer Date Recorded Do you have trouble paying f or utilities (for example, heat, electricity, water, phone)? 2 11/11/2024 Comments No Sex and Gender Information Value Date Recorded Sex Assigned at Female 02/26/2021 12:39 PM DIRECTOR OF ONLINE MERCHANDISING Legal Sex Female 7:03 AM DIRECTOR OF ONLINE MERCHANDISING Gender Identity Female 02/26/2021 12:39 PM DIRECTOR OF ONLINE MERCHANDISING Sexual Orientation Straight 02/26/2021 12 :39 PM DIRECTOR OF ONLINE MERCHANDISING Obstetrics History Para Term AB IAB SAB Ectopic Multiple Livin g Live Births 0 0 0 0 0 0 0 0 0 0 0 Last Filed Vital Signs Vital Sign Reading Time Taken Comments Blood Pressure 120/81 12/16/2024 2:20 PM CDT Pulse 74 12/16/2024 2:20 PM CDT Temperature 37.2 C (99 F) 06/02/2020 3:53 PM DIRECTOR OF ONLINE MERCHANDISING Respiratory Rate - - Oxygen Saturation 96% 12/16/2024 2:20 PM CDT Inhaled Oxygen Concentration - - Weight 74.2 kg (163 lb 8 oz) 12/16/2024 2:20 PM CDT Height 164.8 cm (5' 4.88) 12/16/2024 2:20 PM CD T Body Mass Index 27.31 12/16/2024 2:20 PM CDT Plan of Treatment Upcoming Encounters Date Type Department Care Team (Late st Contact Info) Description 01/17/2025 2:05 PM CDT Office Visit [facility] [address] [place] [address] Yisel Aguilar MD [address] [facility] [address] Health Maintenance Due Date Last Done Comments HIV for age 15-65 07/13/2018 HPV series for age 9-26 (1 - 3-dose series) 07/13/2018 Hepatitis C screening for age 18-79 07/13/2021 Pneumococcal series for age 6-49 (1 of 2 - PCV) 07/13/2022 10/29/2005, 02/28/2005, 02/28/2005, Additional history exists Chlamydia for age 16-24 01/15/2024 01/15/20 23, 01/23/2021, 02/03/2020 Pap test for age 21-65 07/13/2024 COVID-19 vaccine series ( season) 2024 08/02/2021, 05/23/2020, 05/02/2020 Influenza Vaccine (#1) 2024 7, 02/26/2006, 03/10/2005, Additional history exists Tetanus booster 11/02/2025 11/03/2015 BMI (ht and wt on same day) for age 18+ 12/16/2025 12/16/2024, 11/11/2024, 12/18/2023, Additional history exists Depression screening for age 12+ 12/16/2025 12/16/2024, 11/11/2024, 12/18/2023, Additional history exists RSV vaccine for adults or (1 - 1-dose 75+ series) 07/13/2078 Hepatitis B series for 19+ Completed 10/29, 01/04/2004, 2003, Additional history exists Meningococcal series for age 11-21 Aged Out 11/03/2015 No longer eligible based on patient's age to complete this topic Procedures Procedure Name Priority Date/Time Associated Diagnosis Comments GC CHLAMYDIA TRACH PROBE Routine 01/14/2023 3:14 PM CDT Routine screening for STI (sexually transmitted infection) from Last 3 Months or Most Recently Relevant to Health Maintenance Results * GC CHLAMYDIA TRACH PROBE (01/14/2023 3:14 PM CDT) CHLAMYDIA PROBE Negative 4:58 PM CDT [facility] N GONORRHOEAE PROBE Negative 01/15/2023 4:58 PM CDT [facility] Other URINE SPECIMEN / Unknown Non-Blood / Unknown 01/14/2023 3:14 PM CDT 01/14/2023 3:19 PM CDT us Yisel Aguilar MD MICROBIOLOGY Fin al Result [facility] [address] [place] [address], from Last 3 Months or Most Recently Relevant to Health Maintenance Insurance [employer] [facility] Care Teams Chin Strap Maker Relationship Specialty Start Date End Date Pcp, No . PCP - General 07/15/14
[2024-12-17 17:42] VITALS: BP 128/80; PULSE 109; RESP 18; TEMP 37.1; O2SAT 98; BMI 27.0
--- NOTE | 2024-12-17 17:46 | ED.GENADULT ---
HPI - General Adult General Chief complaint: Eye Problems Stated complaint: L eye injury Time Seen by Provider: 12/17/24 17:37 History of Present Illness HPI narrative: Patient reports microwave door swung into her left eye. Has blurred vision, and feels that contact may have split. 19-year-old young woman presenting to the emergency department with concern of an injury to her left eye. Apparently microwave door swung open striking her left eye. Vision is somewhat blurred. No loss of vision. Discomfort but not extreme. She is worried that she may have split a contact. She does not access to her eyeglasses currently loaning them to friend/roommate. Related Data Home Medications ?Medication ?Instructions ?Recorded ?Confirmed escitalopram oxalate 5 mg tablet 5 mg PO 06/17/22 06/17/22 dextroamphetamine-amphetamine ER 1 cap PO DAILY 02/07/24 12/17/24 30 mg 24hr capsule,extend release sertraline 50 mg tablet 50 mg PO 02/07/24 Previous Rx's ?Medication ?Instructions ?Recorded ondansetron 4 mg disintegrating 4 mg PO Q6H PRN Nausea And 04/23/22 tablet Vomiting #15 tabs sucralfate 1 gram tablet (Carafate) 1 g PO QID 7 days #28 tabs 04/23/22 famotidine 20 mg tablet 20 mg PO DAILY #30 tabs 06/23/22 ibuprofen 600 mg tablet 600 mg PO Q6H PRN Pain #30 tabs 02/07/24 oxycodone 5 mg tablet 5 mg PO Q6H PRN 4 OR GREATER ON 02/07/24 PAIN SCALE #15 tabs Allergies Allergy/AdvReac Type Severity Reaction Status Date / Time No Known Drug Allergies Allergy Verified 02/06/24 15:27 Review of Systems Status of ROS: Reports: 6 or more systems reviewed and unremarkable except as noted in History and below [facility] Social History Smoking Status: Current some day smoker What tobacco products do you use: cigarettes Years smoked: 2 Do you use any of these nicotine containing products: E-Cigarettes and Vaping Products Second hand tobacco smoke exposure: No How often do you have a drink containing alcohol: 2-3 times a week How many standard drinks containing alcohol do you have on a typical day: 1 or 2 How often do you have six or more drinks on one occasion: Monthly AUDIT-C Alcohol total score: 5 Non-prescribed substance use: marijuana (any form) service: No Exam Narrative: Exam Narrative: Pleasant. NAD. Clearly a little uncomfortable. Calm. Head is atraumatic. Pupils are equal and appropriately reactive. She has mild subconjunctival hemorrhage at the outer lower left eye. It looks like the contact is still in place. She is a little uncomfortable and so I did place tetracaine for numbing. She was able to remove her contact which is split. Kika did manage to locate all parts of the contact as we try to piece it back together. On closer exam does not appear to have hyphema. Funduscopic exam unremarkable. Lid eversion had not revealed any residual contact debris. Under fluorescein dye there is an area 3 x 1 mm uptake on the 5 o'clock to 3 o'clock position on the left corneal-scleral edge. Const: Vital Signs, click to edit/add: Vital Signs - 24 hr 12/17/24 17:42 Temperature 98.7 F Pulse Rate [Pulse Oximeter] 109 H Respiratory Rate 18 Blood Pressure [Ri ght Upper Arm] 128/80 Pulse Oximetry 98 Oxygen Delivery Me thod Room Air Documenting provider has reviewed patient's vital signs: yes Course Vital Signs Vital signs: Initial Vital Signs Temperature 98.7 F 12/17/24 17:42 Temperature Source Temporal Artery Scan 12/17/24 17:42 Pulse Rate 109 H 12/17/24 17:42 Respiratory Rate 18 12/17/24 17:42 Blood Pressure 128/80 12/17/24 17:42 Blood Pressure Mean 96 12/17/24 17:42 Pulse Oximetry 98 12/17/24 17:42 Oxygen Delivery Method Room Air 12/17/24 17:42 Vital Signs Temperature 98.7 F 12/17/24 17:42 Pulse Rate 109 H 12/17/24 17:42 Respiratory Rate 18 12/17/24 17:42 Blood Pressure 128/80 12/17/24 17:42 Pulse Oximetry 98 12/17/24 17:42 Oxygen Delivery Method Room Air 12/17/24 17:42 Temperature 98.7 F 12/17/24 17:42 Pulse Rate 109 H 12/17/24 17:42 Respiratory Rate 18 12/17/24 17:42 Blood Pressure 128/80 12/17/24 17:42 Pulse Oximetry 98 12/17/24 17:42 Oxygen Delivery Method Room Air 12/17/24 17:42 Medical Decision Making MDM Narrative Medical decision making narrative: I think this corneal abrasion is likely the discomfort that she is feeling. Does not appear to have sustained significant globe injury and again no hyphema present. I suspect would not actually need antibiotic though would be potential recommendation and Kika hopes to continue to wear her contacts. I am recommending eyeglasses if possible. Options for lubrication while wearing contacts are more limited. Will make available gentamicin eye drops from ER stock. If she continues to wear her contacts would have more concern about continued irritation of potential infection though I do think this is somewhat low risk. See patient discharge plan discussion Can take up to 800 mg ibuprofen to 1000 mg of acetaminophen per dose. If possible I would recommend not wearing your contacts over this next week. Have dispensed gentamicin ophthalmic <del>ointment</del> eyedrops as an antibiotic prophylaxis. If you do not need to use your contacts, you might otherwise be benefited from [id number] eye ointment or Lacri-Lube or refresh p.m. for more lubrication. Be seen for marked increase in pain/uncontrolled pain, significant purulent drainage, double vision, surrounding eye redness/swelling. Medical Records Medical records reviewed: Yes I reviewed the patient's medical records Discharge Plan Discharge Clinical Impression: Corneal abrasion, Abrasion of sclera, Subconjunctival hemorrhage Patient Disposition: Home, Self-Care Condition: Stable Instructions: Corneal Abrasion (ED) Additional Instructions: Can take up to 800 mg ibuprofen to 1000 mg of acetaminophen per dose. If possible I would recommend not wearing your contacts over this next week. Have dispensed gentamicin ophthalmic ointment as an antibiotic prophylaxis. If you do not need to use your contacts, you might otherwise be benefited from [id number] eye ointment or Lacri-Lube or refresh p.m. for more lubrication. Be seen for marked increase in pain/uncontrolled pain, significant purulent drainage, double vision, surrounding eye redness/swelling. Prescriptions: No Action escitalopram oxalate 5 mg tablet 5 mg PO famotidine 20 mg tablet 20 mg PO DAILY Qty: 30 1RF ibuprofen 600 mg Tablet 600 mg PO Q6H PRN (Reason: Pain) Qty: 30 0RF oxycodone 5 mg Tablet 5 mg PO Q6H PRN (Reason: 4 OR GREATER ON PAIN SCALE) Qty: 15 0RF dextroamphetamine-amphetamine 30 mg capsule,extended release 24hr 1 cap PO DAILY sertraline 50 mg tablet 50 mg PO ondansetron 4 mg tablet,disintegrating 4 mg PO Q6H PRN (Reason: Nausea And Vomiting) Qty: 15 0RF sucralfate [Carafate] 1 gram tablet 1 g PO QID 7 Days Qty: 28 0RF Follow Up/Referrals: Yisel Aguilar MD [Primary Care Provider, Pediatrics] [facility]
== END 2024-12-17 18:57 | disposition home or self-care (01) ==
PROVIDERS: Emergency Provider Family Medicine; PCP Pediatrics
DX: S05.02XA Injury of conjunctiva and corneal abrasion without foreign body, left eye, initial encounter (principal); H11.32 Conjunctival hemorrhage, left eye
CPT/HCPCS: 99284; A9270